=== PATIENT | female | born 1935 | race Caucasian/White ===

== ENCOUNTER 2016-12-13 18:39 | Inpatient (IN) | payer MEDICARE, OTHER ==
[~2016-12-13] VITALS: Ht 162.6 cm; Wt 65.8 kg
[~2016-12-13 18:39] MED LIST: BAYER ASPIRIN E81 MG PO; BONIVA150 MG PO; CALCIUM + D600 MG PO; CALCIUM600 MG OR; CENTRUM PO; NEXIUM40 MG PO; SYNTHROID100 MCG PO; TAMOXIFEN; TAMOXIFEN PO; VITAMIN D33000 UNIT PO; VITAMIN D400 UNI2 OR; VYTORIN 10/201 TAB; VYTORIN 10/201 TAB PO
[2016-12-13] MEDS ORDERED: NITROFUR MAC50 M1 PO (19:19)
[2016-12-13 19:49] LABS: URINE BILIRUBIN - DIPSTICK NEGATIVE (NEGATIVE); URINE BLOOD DIPSTICK LARGE (NEGATIVE); URINE CLARITY SLIGHT CLOUDY; URINE COLOR YELLOW; URINE GLUCOSE - DIPSTICK NEGATIVE (NEGATIVE); URINE KETONE 15 mg/dL (NEGATIVE); URINE LEUK ESTERASE TRACE (NEGATIVE); URINE NITRITE - DIPSTICK NEGATIVE (Negative); URINE PROTEIN - DIPSTICK 100 mg/dL (NEG-TRACE); URINE SPECIFIC GRAVITY 1.025; URINE UROBILINOGEN - DIPSTICK 0.2 E.U./dL (0.2)
[2016-12-13 20:00] LABS: URINE RBC 25-50 RBC/hpf (0-5); URINE TRANSITIONAL EPI. CELLS FEW hpf
[2016-12-13 20:42] LABS: HEMATOCRIT 38.6 % (37.0-47.0); HEMOGLOBIN 12.6 g/dl (12.0-16.0); IMMATURE GRANULOCYTES 1.1 % (0.0-1.0); MEAN CORPUSCULAR HGB 30.4 pG CALC (26.0-32.0); MEAN CORPUSCULAR HGB CONC 32.6 g/L CALC (32.0-36.0); NEUT# 9.86 thou/uL (2.00-7.15); RED BLOOD COUNT 4.15 mill/uL (4.20-5.60); RED CELL DISTRI WIDTH 12.9 % (11.5-15.5)
[2016-12-13 20:53] LABS: ALKALINE PHOSPHATASE 129 u/l (38-126); ANION GAP 16 (6-22 (CALC)); BILIRUBIN, TOTAL 0.9 mg/dL (0.0-1.4); BUN 25 mg/dL (8-23); BUN/CREATININE RATIO 27 (12-20 (CALC)); CALCIUM 9.9 mg/dL (8.4-10.2); CARBON DIOXIDE 28 mmol/l (22-30); CHLORIDE 101 mmol/l (95-108); CREATININE 0.9 mg/dL (0.5-1.0); GFR 60 ML/MIN (>=60 (CALC)); GFR FOR AFR.AMER. > 60 ML/MIN (>=60 (CALC)); GLUCOSE 115 mg/dL (82-115); POTASSIUM 4.7 mmol/l (3.5-5.1); SGOT/AST 31 u/l (9-36); SGPT/ALT 44 u/l (11-66); SODIUM 140 mmol/l (137-146); TOTAL PROTEIN 6.5 g/dL (6.3-8.2)
[2016-12-13 23:23] LABS: TSH, 3RD GENERATION 0.81 uIU/mL (0.47 - 4.68)
[2016-12-13 23:55] VITALS: BP 145/63
[2016-12-14 03:28] VITALS: BP 112/59
[2016-12-14 06:12] LABS: HEMATOCRIT 36.5 % (37.0-47.0); HEMOGLOBIN 12.1 g/dl (12.0-16.0); IMMATURE GRANULOCYTES 0.8 % (0.0-1.0); MEAN CELL VOLUME 92.6 fL CALC (80.0-100.0); MEAN CORPUSCULAR HGB 30.7 pG CALC (26.0-32.0); MEAN CORPUSCULAR HGB CONC 33.2 g/L CALC (32.0-36.0); NEUT# 7.07 thou/uL (2.00-7.15); RED BLOOD COUNT 3.94 mill/uL (4.20-5.60); RED CELL DISTRI WIDTH 12.9 % (11.5-15.5)
[2016-12-14 06:21] LABS: ANION GAP 15 (6-22 (CALC)); BUN 22 mg/dL (8-23); BUN/CREATININE RATIO 25 (12-20 (CALC)); CALCIUM 9.3 mg/dL (8.4-10.2); CARBON DIOXIDE 30 mmol/l (22-30); CHLORIDE 102 mmol/l (95-108); CREATININE 0.9 mg/dL (0.5-1.0); GFR 60 ML/MIN (>=60 (CALC)); GFR FOR AFR.AMER. > 60 ML/MIN (>=60 (CALC)); GLUCOSE 112 mg/dL (82-115); POTASSIUM 4.2 mmol/l (3.5-5.1); SODIUM 142 mmol/l (137-146)
[2016-12-14 08:05] VITALS: BP 149/53
[2016-12-14 15:30] VITALS: BP 133/55
[2016-12-14 20:00] VITALS: BP 126/53
[2016-12-15 04:00] VITALS: BP 136/55
[2016-12-15 06:16] LABS: HEMATOCRIT 36.4 % (37.0-47.0); IMMATURE GRANULOCYTES 0.6 % (0.0-1.0); MEAN CELL VOLUME 92.9 fL CALC (80.0-100.0); MEAN CORPUSCULAR HGB 30.6 pG CALC (26.0-32.0); NEUT# 4.68 thou/uL (2.00-7.15); RED BLOOD COUNT 3.92 mill/uL (4.20-5.60)
[2016-12-15 06:32] LABS: ANION GAP 13 (6-22 (CALC)); BUN 23 mg/dL (8-23); BUN/CREATININE RATIO 27 (12-20 (CALC)); CALCIUM 9.4 mg/dL (8.4-10.2); CARBON DIOXIDE 29 mmol/l (22-30); CHLORIDE 105 mmol/l (95-108); CREATININE 0.9 mg/dL (0.5-1.0); GFR 60 ML/MIN (>=60 (CALC)); GFR FOR AFR.AMER. > 60 ML/MIN (>=60 (CALC)); GLUCOSE 93 mg/dL (82-115); POTASSIUM 3.6 mmol/l (3.5-5.1); SODIUM 144 mmol/l (137-146)
[2016-12-15 07:53] VITALS: BP 150/56
[2016-12-15 16:00] VITALS: BP 119/56
[2016-12-15 19:00] VITALS: BP 128/58
[2016-12-15] MEDS ORDERED: ATORVASTATIN CA20 MG PO (20:27)
[2016-12-16] VITALS (9 sets, daily range): BP systolic 135–158; BP diastolic 43–65
[2016-12-16 06:02] LABS: HEMATOCRIT 36.5 % (37.0-47.0); HEMOGLOBIN 12.2 g/dl (12.0-16.0); MEAN CELL VOLUME 92.4 fL CALC (80.0-100.0); MEAN CORPUSCULAR HGB 30.9 pG CALC (26.0-32.0); MEAN CORPUSCULAR HGB CONC 33.4 g/L CALC (32.0-36.0); RED BLOOD COUNT 3.95 mill/uL (4.20-5.60); RED CELL DISTRI WIDTH 12.8 % (11.5-15.5)
[2016-12-16 06:23] LABS: ANION GAP 16 (6-22 (CALC)); BUN 26 mg/dL (8-23); BUN/CREATININE RATIO 30 (12-20 (CALC)); CALCIUM 9.6 mg/dL (8.4-10.2); CARBON DIOXIDE 29 mmol/l (22-30); CHLORIDE 104 mmol/l (95-108); CREATININE 0.9 mg/dL (0.5-1.0); GFR 60 ML/MIN (>=60 (CALC)); GFR FOR AFR.AMER. > 60 ML/MIN (>=60 (CALC)); GLUCOSE 83 mg/dL (82-115); POTASSIUM 3.9 mmol/l (3.5-5.1); SODIUM 144 mmol/l (137-146)
[2016-12-17 04:10] VITALS: BP 135/55
[2016-12-17 06:37] LABS: HEMATOCRIT 33.3 % (37.0-47.0); HEMOGLOBIN 11.1 g/dl (12.0-16.0); IMMATURE GRANULOCYTES 0.3 % (0.0-1.0); MEAN CORPUSCULAR HGB 30.7 pG CALC (26.0-32.0); MEAN CORPUSCULAR HGB CONC 33.3 g/L CALC (32.0-36.0); NEUT# 5.91 thou/uL (2.00-7.15); RED BLOOD COUNT 3.62 mill/uL (4.20-5.60); RED CELL DISTRI WIDTH 12.8 % (11.5-15.5)
[2016-12-17 06:52] LABS: ANION GAP 15 (6-22 (CALC)); BUN 18 mg/dL (8-23); BUN/CREATININE RATIO 20 (12-20 (CALC)); CALCIUM 9.3 mg/dL (8.4-10.2); CARBON DIOXIDE 28 mmol/l (22-30); CHLORIDE 105 mmol/l (95-108); CREATININE 0.9 mg/dL (0.5-1.0); GFR 60 ML/MIN (>=60 (CALC)); GFR FOR AFR.AMER. > 60 ML/MIN (>=60 (CALC)); GLUCOSE 94 mg/dL (82-115); SODIUM 144 mmol/l (137-146)
[2016-12-17 08:27] VITALS: BP 119/54
[2016-12-17 11:34] VITALS: BP 141/32
== END 2016-12-17 13:17 | disposition home health service (06) | DRG 669 ==
LOC: ED 18:39 → ED-I 22:00 → ED 22:37 → MS2 22:38
PROVIDERS: Emergency Medicine; Internal Medicine; Nurse Practitioner Family; ADMIT Internal Medicine; ATTEND Internal Medicine
PROC: 0TBB8ZZ Excision of Bladder, Via Natural or Artificial Opening Endoscopic (ICD-10-PCS; principal; 2016-12-16)
PROC: BT1FZZZ Fluoroscopy of Left Kidney, Ureter and Bladder (ICD-10-PCS; 2016-12-16)
PROC: 0T778DZ Dilation of Left Ureter with Intraluminal Device, Via Natural or Artificial Opening Endoscopic (ICD-10-PCS; 2016-12-16)
DX: C67.8 Malignant neoplasm of overlapping sites of bladder (principal); N39.0 Urinary tract infection, site not specified; I34.1 Nonrheumatic mitral (valve) prolapse; N32.89 Other specified disorders of bladder; C67.2 Malignant neoplasm of lateral wall of bladder; I10 Essential (primary) hypertension; E03.9 Hypothyroidism, unspecified; H91.90 Unspecified hearing loss, unspecified ear; Z87.891 Personal history of nicotine dependence; Z90.11 Acquired absence of right breast and nipple; Z85.3 Personal history of malignant neoplasm of breast
CPT/HCPCS: J1956; Q9967

== ENCOUNTER 2017-01-27 06:01 | Day surgery (SDC) | payer MEDICARE, OTHER ==
[~2017-01-27] VITALS: Ht 162.6 cm; Wt 65.8 kg
[~2017-01-27 06:01] MED LIST changes: +ALLERGY RE50 MCG/ACT IN; +ATACAND PO; +ATORVASTATIN CA20 MG PO; +NITROFUR MAC50 M1 PO; +PROAIR HFA IN
[2017-01-27] MEDS ORDERED: ADVAIR DISK1 IN (06:22)
[2017-01-27] MEDS ORDERED: NORCO1 TA1 PO (08:26)
[2017-01-27] MEDS ORDERED: BACTRIM DS1 TAB PO (08:26)
[2017-01-27] MEDS ORDERED: PYRIDIUM200 MG PO (08:26)
[2017-01-27 08:34] VITALS: BP 150/69
== END 2017-01-27 09:10 | disposition home or self-care (01) ==
LOC: ORM 06:01
PROVIDERS: ATTEND Urology
PROC: 0TBB8ZX Excision of Bladder, Via Natural or Artificial Opening Endoscopic, Diagnostic (ICD-10-PCS; principal; 2017-01-27)
PROC: BT14ZZZ Fluoroscopy of Kidneys, Ureters and Bladder (ICD-10-PCS; 2017-01-27)
PROC: 0TP98DZ Removal of Intraluminal Device from Ureter, Via Natural or Artificial Opening Endoscopic (ICD-10-PCS; 2017-01-27)
DX: C67.9 Malignant neoplasm of bladder, unspecified (principal); N30.81 Other cystitis with hematuria; N81.0 Urethrocele; I10 Essential (primary) hypertension; E03.9 Hypothyroidism, unspecified; H91.90 Unspecified hearing loss, unspecified ear; I34.1 Nonrheumatic mitral (valve) prolapse; Z87.891 Personal history of nicotine dependence; Z85.3 Personal history of malignant neoplasm of breast; Z96.0 Presence of urogenital implants
CPT/HCPCS: J1956; Q9967

== ENCOUNTER 2018-04-11 11:52 | Observation (INO) | payer MEDICARE, OTHER ==
[~2018-04-11] VITALS: Ht 162.6 cm; Wt 65.0 kg
[~2018-04-11 11:52] MED LIST changes: +ADVAIR DISK1 IN; +BACTRIM DS1 TAB PO; +NORCO1 TA1 PO; +PYRIDIUM200 MG PO
[2018-04-11 12:34] LABS: HEMOGLOBIN 13.6 g/dl (12.0-16.0); IMMATURE GRANULOCYTES 0.4 % (0.0-5.0); MEAN CORPUSCULAR HGB 29.2 pG CALC (26.0-32.0); MEAN CORPUSCULAR HGB CONC 32.4 g/L CALC (32.0-36.0); NEUT# 8.94 thou/uL (2.00-7.15); RED BLOOD COUNT 4.65 mill/uL (4.20-5.60); RED CELL DISTRI WIDTH 13.2 % (11.5-15.5)
[2018-04-11 12:37] LABS: MEAN CELL VOLUME 90.3 fL CALC (80.0-100.0)
[2018-04-11 12:42] LABS: ANION GAP 17 (6-22 (CALC)); BUN 26 mg/dL (8-23); BUN/CREATININE RATIO 31 (12-20 (CALC)); CARBON DIOXIDE 27 mmol/l (22-30); CHLORIDE 101 mmol/l (95-108); CREATININE 0.8 mg/dL (0.5-1.0); GFR > 60 ML/MIN (>=60 (CALC)); GFR FOR AFR.AMER. > 60 ML/MIN (>=60 (CALC)); POTASSIUM 4.7 mmol/l (3.5-5.1); SODIUM 139 mmol/l (137-146)
[2018-04-11 16:20] VITALS: BP 146/45
[2018-04-11 19:31] VITALS: BP 124/54
[2018-04-12] VITALS (7 sets, daily range): BP systolic 120–170; BP diastolic 40–64
[2018-04-12 05:18] LABS: HEMATOCRIT 37.5 % (37.0-47.0); HEMOGLOBIN 12.4 g/dl (12.0-16.0); IMMATURE GRANULOCYTES 0.8 % (0.0-5.0); MEAN CELL VOLUME 89.7 fL CALC (80.0-100.0); MEAN CORPUSCULAR HGB 29.7 pG CALC (26.0-32.0); MEAN CORPUSCULAR HGB CONC 33.1 g/L CALC (32.0-36.0); NEUT# 6.53 thou/uL (2.00-7.15); RED BLOOD COUNT 4.18 mill/uL (4.20-5.60); RED CELL DISTRI WIDTH 13.4 % (11.5-15.5)
[2018-04-12 05:31] LABS: ALBUMIN 3.7 g/dL (3.2-5.0); ALKALINE PHOSPHATASE 151 u/l (38-126); ANION GAP 17 (6-22 (CALC)); BILIRUBIN, TOTAL 0.4 mg/dL (0.0-1.4); BUN 24 mg/dL (8-23); BUN/CREATININE RATIO 27 (12-20 (CALC)); CARBON DIOXIDE 26 mmol/l (22-30); CHLORIDE 102 mmol/l (95-108); CREATININE 0.9 mg/dL (0.5-1.0); GFR 60 ML/MIN (>=60 (CALC)); GFR FOR AFR.AMER. > 60 ML/MIN (>=60 (CALC)); MAGNESIUM 1.8 mg/dL (1.6-2.3); POTASSIUM 4.4 mmol/l (3.5-5.1); SGOT/AST 21 u/l (9-36); SODIUM 140 mmol/l (137-146); TOTAL PROTEIN 6.6 g/dL (6.3-8.2)
[2018-04-12 16:31] LABS: URINE BILIRUBIN - DIPSTICK NEGATIVE (NEGATIVE); URINE BLOOD DIPSTICK NEGATIVE (NEGATIVE); URINE COLOR YELLOW; URINE GLUCOSE - DIPSTICK NEGATIVE (NEGATIVE); URINE KETONE NEGATIVE (NEGATIVE); URINE LEUK ESTERASE NEGATIVE (NEGATIVE); URINE NITRITE - DIPSTICK NEGATIVE (Negative); URINE PH 5.5 (4.5-8.0); URINE PROTEIN - DIPSTICK NEGATIVE (NEG-TRACE); URINE SPECIFIC GRAVITY >=1.030; URINE UROBILINOGEN - DIPSTICK 0.2 E.U./dL (0.2)
[2018-04-13 04:16] VITALS: BP 152/60
[2018-04-13 05:28] LABS: HEMATOCRIT 35.7 % (37.0-47.0); HEMOGLOBIN 11.5 g/dl (12.0-16.0); IMMATURE GRANULOCYTES 0.9 % (0.0-5.0); MEAN CELL VOLUME 91.1 fL CALC (80.0-100.0); MEAN CORPUSCULAR HGB 29.3 pG CALC (26.0-32.0); MEAN CORPUSCULAR HGB CONC 32.2 g/L CALC (32.0-36.0); NEUT# 11.1 thou/uL (2.00-7.15); RED BLOOD COUNT 3.92 mill/uL (4.20-5.60); RED CELL DISTRI WIDTH 13.8 % (11.5-15.5)
[2018-04-13 05:34] LABS: ALBUMIN 3.5 g/dL (3.2-5.0); ALKALINE PHOSPHATASE 125 u/l (38-126); ANION GAP 14 (6-22 (CALC)); BILIRUBIN, TOTAL 0.2 mg/dL (0.0-1.4); BUN 39 mg/dL (8-23); BUN/CREATININE RATIO 40 (12-20 (CALC)); CARBON DIOXIDE 26 mmol/l (22-30); CHLORIDE 104 mmol/l (95-108); GFR 53 ML/MIN (>=60 (CALC)); GFR FOR AFR.AMER. > 60 ML/MIN (>=60 (CALC)); MAGNESIUM 1.9 mg/dL (1.6-2.3); POTASSIUM 4.1 mmol/l (3.5-5.1); SGOT/AST 19 u/l (9-36); SODIUM 140 mmol/l (137-146); TOTAL PROTEIN 6.1 g/dL (6.3-8.2)
[2018-04-13 07:59] VITALS: BP 139/51
[2018-04-13 11:05] VITALS: BP 148/51
[2018-04-13 15:07] VITALS: BP 147/58
[2018-04-13 19:47] VITALS: BP 144/60
[2018-04-14 00:07] VITALS: BP 144/62
[2018-04-14 04:50] VITALS: BP 137/64
[2018-04-14 05:45] LABS: HEMATOCRIT 35.5 % (37.0-47.0); HEMOGLOBIN 11.4 g/dl (12.0-16.0); IMMATURE GRANULOCYTES 2.4 % (0.0-5.0); MEAN CELL VOLUME 91.7 fL CALC (80.0-100.0); MEAN CORPUSCULAR HGB 29.5 pG CALC (26.0-32.0); MEAN CORPUSCULAR HGB CONC 32.1 g/L CALC (32.0-36.0); NEUT# 10.85 thou/uL (2.00-7.15); RED BLOOD COUNT 3.87 mill/uL (4.20-5.60)
[2018-04-14 06:13] LABS: ALBUMIN 3.3 g/dL (3.2-5.0); ALKALINE PHOSPHATASE 108 u/l (38-126); ANION GAP 13 (6-22 (CALC)); BILIRUBIN, TOTAL 0.3 mg/dL (0.0-1.4); BUN 39 mg/dL (8-23); BUN/CREATININE RATIO 44 (12-20 (CALC)); CARBON DIOXIDE 26 mmol/l (22-30); CHLORIDE 107 mmol/l (95-108); CREATININE 0.9 mg/dL (0.5-1.0); GFR 60 ML/MIN (>=60 (CALC)); GFR FOR AFR.AMER. > 60 ML/MIN (>=60 (CALC)); MAGNESIUM 1.8 mg/dL (1.6-2.3); POTASSIUM 4.4 mmol/l (3.5-5.1); SGOT/AST 18 u/l (9-36); SODIUM 142 mmol/l (137-146); TOTAL PROTEIN 5.9 g/dL (6.3-8.2)
[2018-04-14 11:12] VITALS: BP 162/66
[2018-04-14] MEDS ORDERED: PREDNISONE10 MG PO (16:06)
[2018-04-14] MEDS ORDERED: DOXYCYCL HYC100 MG PO (16:06)
== END 2018-04-14 17:20 | disposition home or self-care (01) ==
LOC: ED 11:52 → ED-I 12:43 → ED 12:43 → ED-I 13:30 → ED 13:42 → MS2 13:43
PROVIDERS: Family Medicine; ADMIT Internal Medicine Nephrology; ATTEND Internal Medicine Nephrology
PROC: 3E02340 Introduction of Influenza Vaccine into Muscle, Percutaneous Approach (ICD-10-PCS; principal; 2018-04-13)
PROC: 3E0234Z Introduction of Serum, Toxoid and Vaccine into Muscle, Percutaneous Approach (ICD-10-PCS; 2018-04-13)
DX: J18.9 Pneumonia, unspecified organism (principal); J44.1 Chronic obstructive pulmonary disease with (acute) exacerbation; J44.0 Chronic obstructive pulmonary disease with (acute) lower respiratory infection; J91.8 Pleural effusion in other conditions classified elsewhere; I10 Essential (primary) hypertension; E78.5 Hyperlipidemia, unspecified; E03.9 Hypothyroidism, unspecified; I34.1 Nonrheumatic mitral (valve) prolapse; Z85.3 Personal history of malignant neoplasm of breast; Z87.891 Personal history of nicotine dependence; Z88.0 Allergy status to penicillin; Z23 Encounter for immunization; R06.02 Shortness of breath
CPT/HCPCS: J1650; Q9967

== ENCOUNTER → 2018-06-16 | Outpatient (REF) | payer MEDICARE, OTHER ==
[~2018-06-16] MED LIST changes: +DOXYCYCL HYC100 MG PO; +PREDNISONE10 MG PO
== END | disposition home or self-care (01) ==
LOC: DI 09:28
PROVIDERS: ATTEND Internal Medicine
DX: J90 Pleural effusion, not elsewhere classified (principal)

== ENCOUNTER → 2018-06-26 | Outpatient (REF) | payer MEDICARE, OTHER ==
[2018-06-26 12:33] LABS: ANION GAP 13 (6-22 (CALC)); BUN 17 mg/dL (8-23); BUN/CREATININE RATIO 20 (12-20 (CALC)); CARBON DIOXIDE 31 mmol/l (22-30); CHLORIDE 101 mmol/l (95-108); CREATININE 0.8 mg/dL (0.5-1.0); GFR > 60 ML/MIN (>=60 (CALC)); GFR FOR AFR.AMER. > 60 ML/MIN (>=60 (CALC)); POTASSIUM 5.1 mmol/l (3.5-5.1); SODIUM 140 mmol/l (137-146)
== END | disposition home or self-care (01) ==
LOC: LAB 11:10
PROVIDERS: ATTEND Internal Medicine
DX: N17.9 Acute kidney failure, unspecified (principal)

== ENCOUNTER 2019-07-12 | Inpatient (IN) | payer MEDICARE, OTHER ==
--- NOTE | 2019-07-12 15:56 | NUR ---
CEFTRIAXONE ORDERED FOR PT, PENICILLIN ALLERGY ON FILE. PT HAS TOLERATED CEFTRIAXONE HERE B4
[2019-07-12 16:00] VITALS: BP 148/61
--- NOTE | 2019-07-12 16:00 | NUR ---
DIRECT ADMIT PATIENT A/OX4, NO C/O PAIN, NO S/S RESP DISTRESS, PATIENT ON ROOM AIR, PATIENT HEART RHYTHM IN NORMAL SINUS RHYTHM, INSTRUCTIONAL TECHNOLOGISTFINANCIAL DEALERS PORT TO RIGHT SUBCLAVIAN, NO BLOOD PRESSURE IN RIGHT ARM HX RIGHT MASTECTOMY, ORIENT PATIENT TO ROOM, STAFF, CALL LIGHT AND PLAN OF CARE, WILL CONTINUE TO MONITOR PATIENT, CALL LIGHT WITHIN REACH
[2019-07-12] MEDS ORDERED: CITALOPRAM20 M1 PO (17:03)
[2019-07-12 17:07] LABS: HEMATOCRIT 32.3 % (37.0-47.0); HEMOGLOBIN 10.4 g/dl (12.0-16.0); MEAN CELL VOLUME 92.3 fL CALC (80.0-100.0); MEAN CORPUSCULAR HGB 29.7 pG CALC (26.0-32.0); MEAN CORPUSCULAR HGB CONC 32.2 g/dL CAL (32.0-36.0); NEUT# 11.51 thou/uL (2.00-7.15); RED BLOOD COUNT 3.5 mill/uL (4.20-5.60); RED CELL DISTRI WIDTH 25.7 % (11.5-15.5)
[2019-07-12 17:35] LABS: ANION GAP 11 (6-22 (CALC)); BUN 42 mg/dL (8-23); BUN/CREATININE RATIO 56 (12-20 (CALC)); CARBON DIOXIDE 31 mmol/l (22-30); CHLORIDE 102 mmol/l (95-108); CREATININE 0.8 mg/dL (0.5-1.0); GFR > 60 ML/MIN (>=60 (CALC)); GFR FOR AFR.AMER. > 60 ML/MIN (>=60 (CALC)); POTASSIUM 4.2 mmol/l (3.5-5.1); SODIUM 139 mmol/l (137-146)
[2019-07-12 17:42] LABS: IMMATURE GRANULOCYTES 6.8 % (0.0-5.0)
[2019-07-12 19:00] VITALS: BP 148/67
--- NOTE | 2019-07-12 19:40 | NUR ---
CHNAGE OF SHIFT REPORT RECEIVED FROM MANDY DOWNING. PT REQUESTED ASSISTANCE TO BATHROOM. PT ABLE TO AMBULATE BUT UNSTEADY ON FEET. BED ALARM PUT ON. PT EDUCATED ON ASKING FOR ASISTANCE WITH TRANSFER. EDUCATION PROVIDED ON FALL PREVENTION
[2019-07-13 00:11] VITALS: BP 180/79
--- NOTE | 2019-07-13 00:33 | NUR ---
DR OSBORNE NOTIFIED OF PT'S BP OF 180/79; HR AT 75. NEW ORDER RECEIVED FOR PRN HYDRALIZINE. ORDER FAXED TO [facility]. PROOFER BLACK AND WHITE WILL ADMINISTER PER ORDER WHEN MEDICATION BECOMES AVAILABLE. PROOFER BLACK AND WHITE WILL CONTINUE TO MONITOR
--- NOTE | 2019-07-13 00:54 | NUR ---
HYDRALIZINE ADMINISTERED AT THIS TIME. HEAD OF MEASUREMENT & INSIGHTS WILL CONTINUE TO MONITOR BP
--- NOTE | 2019-07-13 01:23 | NUR ---
PT'S BP DOWN TO 156/61. FUR TRAPPER WILL CONTINUE TO MONONEIDATR.
[2019-07-13 03:50] VITALS: BP 171/66
--- NOTE | 2019-07-13 04:32 | NUR ---
PT'S SBP >160. ULTRASOUND MANAGER WILL ADMINISTER PRN HYDRALIZE PER ORDER. PT DENIES HEADACHE OR DOUBLE VISION. ULTRASOUND MANAGER WILL CONTINUE TO MONIOTR
--- NOTE | 2019-07-13 05:41 | NUR ---
PT'S BP AT 140/57
[2019-07-13 05:50] LABS: HEMATOCRIT 32.9 % (37.0-47.0); HEMOGLOBIN 10.6 g/dl (12.0-16.0); IMMATURE GRANULOCYTES 5.3 % (0.0-5.0); MEAN CELL VOLUME 92.2 fL CALC (80.0-100.0); MEAN CORPUSCULAR HGB 29.7 pG CALC (26.0-32.0); MEAN CORPUSCULAR HGB CONC 32.2 g/dL CAL (32.0-36.0); NEUT# 10.94 thou/uL (2.00-7.15); RED BLOOD COUNT 3.57 mill/uL (4.20-5.60); RED CELL DISTRI WIDTH 25.6 % (11.5-15.5)
[2019-07-13 06:12] LABS: ANION GAP 8 (6-22 (CALC)); BUN 36 mg/dL (8-23); BUN/CREATININE RATIO 60 (12-20 (CALC)); CARBON DIOXIDE 33 mmol/l (22-30); CHLORIDE 101 mmol/l (95-108); CREATININE 0.6 mg/dL (0.5-1.0); GFR > 60 ML/MIN (>=60 (CALC)); GFR FOR AFR.AMER. > 60 ML/MIN (>=60 (CALC)); POTASSIUM 4.3 mmol/l (3.5-5.1); SODIUM 138 mmol/l (137-146)
--- NOTE | 2019-07-13 07:10 | NUR ---
REPORT RECEIVED FROM MANDY JEAN BAPTISTE. PT RESTING IN BED WITH EYES CLOSED AND NO SIGNS OF DISTRESS. AWAKENS TO TACTILE STIMULI. ORIENTED X 3. DENIES PAIN. RESPIRATIONS EVEN AND UNLABORED ON ROOM AIR. PLAN OF CARE REVIEWED. PT ENCOURAGED TO VERBALIZE CONCERNS. STATES UNDERSTANDING. SAFETY MEASURES IN PLACE. CALL LIGHT WITHIN REACH.
[2019-07-13 07:56] VITALS: BP 142/76
--- NOTE | 2019-07-13 08:46 | NUR ---
PT OFF UNIT VIA WHEELCHAIR WITH WIRE FENCE BUILDER FOR CXR.
--- NOTE | 2019-07-13 08:55 | NUR ---
BACK TO ROOM IN STABLE CONDITION.
[2019-07-13 11:49] VITALS: BP 129/48
--- NOTE | 2019-07-13 11:51 | NUR ---
DR. OSBORNE AT BEDSIDE.
[2019-07-13 15:05] VITALS: BP 144/69
--- NOTE | 2019-07-13 15:32 | NUR ---
PT RESTING WITH BED WITH EYES CLOSED. TAKING PHONE CALLS FROM FRIENDS AND FAMILY. NO REQUESTS OR CONCERNS AT THIS TIME. IV SITE APPEARS HEALTHY AND FLUSHES. CALL LIGHT WITHIN REACH.
--- NOTE | 2019-07-13 18:00 | NUR ---
ANTIBIOTICS INFUSED WITHOUT DIFFICULTY; RIGHT UPPER CHEST PORT FLUSHES WELL WITH GOOD BLOOD RETURN.
--- NOTE | 2019-07-13 18:55 | NUR ---
REPORT RECEIVED FROM MANDY WILL. PT SITTING ON THE SIDE OF THE BED. NO S/S OF DISTRESS AT THIS TIME. SAFETY PRECAUTIONS IN PLACE. WILL CONTINUE TO MONITOR.
[2019-07-13 20:42] VITALS: BP 134/61
--- NOTE | 2019-07-13 20:42 | NUR ---
PT RESTING IN BED, ALERT AND ORIETNED. RESPIRATIONS EVEN AND UNLABORED ON RA. LUNGS SOUND CLEAR. PEDAL PULSES STRONG. PT DENIES ANY PAIN OR DISCOMFORT AT THIS. PT REPOSITIONED IN BED. SAFETY PRECAUTIONS IN PLACE. WILL CONTINUE TO MONITOR.
[2019-07-14 00:12] VITALS: BP 110/46
--- NOTE | 2019-07-14 00:46 | NUR ---
PT RESTING IN BED. NO S/S OF DISTRESS AT THIS TIME. TELE IN PLACE. CALL AVILA WITHIN REACH. WILL CONTINUE TO MONITOR.
[2019-07-14 04:25] VITALS: BP 120/70
--- NOTE | 2019-07-14 04:53 | NUR ---
PT RESTING IN BED, NO S/S OF DISTRESS AT THIS ITME. SAFETY PRECAUTIONS IN PLACE. WILL CONTINUE TO MONITOR.
[2019-07-14 05:46] LABS: HEMATOCRIT 30.5 % (37.0-47.0); HEMOGLOBIN 9.7 g/dl (12.0-16.0); MEAN CELL VOLUME 94.1 fL CALC (80.0-100.0); MEAN CORPUSCULAR HGB 29.9 pG CALC (26.0-32.0); MEAN CORPUSCULAR HGB CONC 31.8 g/dL CAL (32.0-36.0); RED BLOOD COUNT 3.24 mill/uL (4.20-5.60)
[2019-07-14 06:14] LABS: ANION GAP 5 (6-22 (CALC)); BUN 30 mg/dL (8-23); BUN/CREATININE RATIO 48 (12-20 (CALC)); CARBON DIOXIDE 33 mmol/l (22-30); CHLORIDE 103 mmol/l (95-108); CREATININE 0.6 mg/dL (0.5-1.0); GFR > 60 ML/MIN (>=60 (CALC)); GFR FOR AFR.AMER. > 60 ML/MIN (>=60 (CALC)); POTASSIUM 4.2 mmol/l (3.5-5.1); SODIUM 138 mmol/l (137-146)
[2019-07-14 08:00] VITALS: BP 103/50
--- NOTE | 2019-07-14 09:16 | NUR ---
PATIENT RESTING IN BED, PATIENT APPEITITE IS GOOD, PATIENT ATE 100% OF BREAKFAST, NO COMPLAINTS, VSS. PATIENT REPORTED LAST BM LAST NIGHT NORMAL. PATIENT DENIES COUGH OR SOB.
[2019-07-14] MEDS ORDERED: OMNICEF300 MG PO (10:43)
[2019-07-14 11:12] VITALS: BP 121/60
[2019-07-14 15:00] VITALS: BP 104/52
--- NOTE | 2019-07-14 15:30 | NUR ---
Patient discharged home via family vehicle with sister. Patient was instructed to pick and shovel man antibotics today and take a dose tonight from her pharamacy. Patient educated on discharge instruction, patient is being treated for pnuemonia. Patient educated on deep breathing excercise and to avoid crowded place and good hand hygiene. Patient vss. Patient stated "she feel well enough to go home". Patient verbalized understanding of discharge instruction. Port from right upper chest d/c needle intact and flushed with heparin flush prior to d/c.
== END 2019-07-14 15:20 | disposition home or self-care (01) | DRG 194 ==
PROVIDERS: Internal Medicine; ADMIT Internal Medicine
DX: J18.9 Pneumonia, unspecified organism (principal); J44.0 Chronic obstructive pulmonary disease with (acute) lower respiratory infection; C56.9 Malignant neoplasm of unspecified ovary; J91.0 Malignant pleural effusion; C79.9 Secondary malignant neoplasm of unspecified site; I10 Essential (primary) hypertension; E03.9 Hypothyroidism, unspecified; I34.1 Nonrheumatic mitral (valve) prolapse; Z87.891 Personal history of nicotine dependence; D64.9 Anemia, unspecified; M79.89 Other specified soft tissue disorders; R06.02 Shortness of breath; M54.6 Pain in thoracic spine; M54.5 Low back pain